=== PATIENT | female | born 1960 | race Caucasian/White ===

== ENCOUNTER → 2024-03-14 10:47 | Outpatient (REF) | payer OTHER, SELFPAY | LOC: HWWDC 10:47 | PROVIDERS: ATTENDING PHYSICIAN Nurse Practitioner | DX: Z12.31 Encounter for screening mammogram for malignant neoplasm of breast (principal) | CPT/HCPCS: 77063; 77067 ==

== ENCOUNTER → 2025-06-19 09:03 | Outpatient (REF) | payer OTHER, SELFPAY | LOC: HWRAD 09:03 | PROVIDERS: ATTENDING PHYSICIAN Nurse Practitioner | DX: Z12.31 Encounter for screening mammogram for malignant neoplasm of breast (principal); Z87.891 Personal history of nicotine dependence | CPT/HCPCS: 71271; 77063; 77067 ==